=== PATIENT | male | born 1970 | race Caucasian/White ===

== ENCOUNTER 2018-08-22 06:05 | Day surgery (SDC) | payer BC ==
[2018-08-16 13:19] VITALS: BMI 29.2
[2018-08-22] MEDS ORDERED: DEXAMETHASONE SOD PHOSPHATE/PF 10 MG/ML SDV ONE (07:07)
[2018-08-22] MEDS ORDERED: MIDAZOLAM HCL 2 MG/2 ML SINGLE DOSE VIAL ONE ×3 (07:07→07:39)
[2018-08-22] MEDS ORDERED: BUPIVACAINE HCL/PF (5 MG/ML) 30 ML VIAL IJ ONE (07:08)
[2018-08-22] MEDS ORDERED: LIDOCAINE 1%/EPI 1:100000 (20 ML MULTI DOSE VIAL) ONE (07:15)
[2018-08-22] MEDS ORDERED: THROMBIN (RECOMBINANT) 5,000 UNIT VIAL TP ONE (07:15)
[2018-08-22] MEDS ORDERED: methylPREDNISolone ACET (DEPO) 40 MG/1 ML VIAL ONE (07:15)
[2018-08-22] MEDS ORDERED: SODIUM CHLORIDE 0.9% P/F 10 ML VIAL IJ ONE (07:37)
[2018-08-22] MEDS ORDERED: ceFAZolin SODIUM 1 GM VIAL ONE (07:37)
[2018-08-22] MEDS ORDERED: ONDANSETRON 4 MG/2 ML VIAL ONE (07:37)
[2018-08-22] MEDS ORDERED: oxyCODONE HCL 10 MG SUSTAINED ACTING TABLET PO ONE (07:42)
[2018-08-22] MEDS ORDERED: GABAPENTIN 300 MG CAPSULE (FP) PO ONE (07:45)
--- NOTE | 2018-08-22 07:56 | HP ---
History & Physical Update - History History: No Change - Physical Physical: No Change - Assessment Assessment: No Change - Plan Plan: No Change
[2018-08-22] MEDS ORDERED: LIDOCAINE 1%/EPI 1:100000 (20 ML MULTI DOSE VIAL) IJ ONE (09:31)
[2018-08-22] MEDS ORDERED: THROMBIN (BOVINE) 5,000 UNIT VIAL TP ONE (09:32)
[2018-08-22] MEDS ORDERED: GELATIN, ABSORBABLE 100 EACH SPONGE TP ONE (09:32)
[2018-08-22] MEDS ORDERED: methylPREDNISolone ACET (DEPO) 40 MG/1 ML VIAL IM ONE (09:34)
--- NOTE | 2018-08-22 10:30 | OP ---
Operative Note - Note: Operative Date: 08/22/18 Pre-Operative Diagnosis: lumbar stenosis, herniated Disc L4-L5 Operation: laminectomy of L4-L5 with microdisectomy Surgeon: Dequan Ray [employer] Instructor: Alyssa Camejo Anesthesia: Spinal Estimated Blood Loss (mls): 20 Fluid Volume Replaced (mls): 900 Operative Report Dictated: Yes
[2018-08-22] MEDS ORDERED: ONDANSETRON 4 MG/2 ML VIAL IVPUSH PRN (10:40)
[2018-08-22] MEDS ORDERED: oxyCODONE HCL 5 MG TABLET PO PRN (10:40)
--- NOTE | 2018-08-22 10:44 | SURG ---
Surgery Quality Control Engineer Note Quality Control Engineer: Alyssa Camejo PA-C Date of Service: 08/22/18 Diagnosis: lumbar stenosis, herniated disc Procedure: laminectomy of L4-L5 with microdiscectomy I was present for the entirety of the operative procedure. For further detail, please refer to operative report. Visit type - Case Type Case Type: Scheduled - Emergency Emergency Visit: No - New patient This patient is new to me today: Yes Date on this admission: 08/22/18
[2018-08-22] MEDS ORDERED: LACTATED RINGERS SOLUTION 1,000 ML IV SCH (10:45)
[2018-08-22 11:42] VITALS: TEMP 98.2
[2018-08-22] MEDS ORDERED: oxyCODONE HCL 5 MG TABLET ONE (12:19)
[2018-08-22 13:15] VITALS: BP 132/80; PULSE 62
--- NOTE | 2018-08-22 14:35 | OP ---
DATE OF OPERATION: 08/22/2018 PREOPERATIVE DIAGNOSIS: Spinal stenosis, L4-L5. POSTOPERATIVE DIAGNOSIS: Spinal stenosis, L4-L5. PROCEDURE PERFORMED: Laminectomy, L4-L5. SURGEON: Dequan Ray MD DIRECTOR OF INTELLIGENCE: MADELEINE Roman ESTIMATED BLOOD LOSS: 50 mL. INTRAVENOUS FLUIDS: Per Anesthesia. ANESTHESIA: Spinal/TLIP block. COMPLICATIONS: There were none. DISPOSITION: Patient brought to the PACU in stable condition. INDICATIONS FOR SURGERY: The patient is a 48-year-old gentleman who has been suffering from pain from his back down his left leg. X-rays and MRI were completed, which noted he had spinal stenosis at L4-L5 secondary to a herniated disc. He had gone through an exhaustive course of treatment which included medications, physical therapy, as well as injections. Unfortunately, his pain continued to persist despite all this. At this point, risks, benefits, and alternatives were discussed, and the patient consented to surgery. OPERATIVE NOTE: Patient was brought to the operating room by the anesthesia staff. After appropriate patient identification was performed and spinal anesthesia was given, a TLIP block was also given. The patient was able to position himself prone onto the OR table with all areas of bony prominences well-padded at this time. Two needles were placed into the back to alexey off the L4-L5 level. An x-ray was taken to confirm this was correct. Musella were removed, and 10 mL of lidocaine with epinephrine was injected into his back at this time. His back was prepped and draped in a sterile manner. At this point, a time-out was completed. An incision was made from the top of L4 down to the bottom of L5. Dissection was carried down to the fascia. Fascia was split open at this time. An appropriate retractor was then placed in. A spinal needle was placed onto the L4 lamina to alexey off the L4-L5 level. An x-ray was taken to confirm this was correct. The needle was removed, and the interspinous ligament at L4-L5 was removed. Portion of the L4-L5 spinous process was removed. Portion of the L4-L5 lamina was removed. The segment was identified, it was removed. Then, thecal sac was mobilized medially. A disc herniation was noted. Complete decompression was performed by doing a foraminotomy and taking a portion of the facet, such that by the end of the procedure, the L5 nerve root appeared to be well decompressed. All bleeding was well controlled at this time. Steroids were placed over the nerve root. Floseal was placed over that. The fascia was closed with a No. 1 Vicryl suture. The subcutaneous tissues were closed with 2-0 Vicryl suture. Skin was closed with 3-0 Monocryl suture. Dermabond was applied. Steri-Strips were applied, and sterile dressings applied. Patient was placed supine on the OR bed and brought to the PACU in stable condition. DEQUAN RAY M.D. JAYY/[id number]
--- NOTE | 2018-08-26 14:45 | PATH ---
Surgical Pathology Report Patient Name: JEAN MORLEY [facility]. Rec. #: [id number] /Age/Gender: 1970 (Age: 48) / M Account: [id number] Location: [facility] AMBULATORY Taken: 08/22/2018 Received: 08/22/2018 Reported: 08/26/2018 Physicians: Dequan Ray M.D. Specimen(s) Received L4-5 DISC Clinical History Spinal stenosis Final Diagnosis L4-5 DISC, LUMBAR LAMINECTOMY: BENIGN INTERVERTEBRAL DISC TISSUE. Electronically Signed April Murray M.D. Gross Description Received in formalin labeled "L4-5 disc," is a 2.4 x 1.8 x 0.3 cm aggregate of tafoya fragments of fibrocartilaginous tissue. The specimen is entirely submitted in one cassette. 08/23/2018 [facility]08/23/2018
== END 2018-08-22 13:00 | disposition home or self-care (01) ==
LOC: FASU 06:05
PROVIDERS: ATTEND Orthopaedic Surgery Orthopaedic Surgery of the Spine
PROC: 01NB0ZZ Release Lumbar Nerve, Open Approach (ICD-10-PCS; principal; 2018-08-22 09:19)
DX: M48.061 Spinal stenosis, lumbar region without neurogenic claudication (principal)
CPT/HCPCS: 72100-TC-FY; 88304-TC; 94760